=== PATIENT | female | born 1980 | race Caucasian/White ===

== ENCOUNTER → 2021-05-02 | Outpatient (CLI) | payer OTHER | LOC: LAB 14:10 | DX: R53.83 Other fatigue (principal); I73.00 Raynaud's syndrome without gangrene; M25.50 Pain in unspecified joint; L98.9 Disorder of the skin and subcutaneous tissue, unspecified; R76.8 Other specified abnormal immunological findings in serum; D89.89 Other specified disorders involving the immune mechanism, not elsewhere classified | CPT/HCPCS: 36415; 82164; 82330; 82550; 82728; 83735; 83970; 84100; 85652; 86140 ==